=== PATIENT | female | born 1995 | race African-American/Black ===

== ENCOUNTER 2019-06-13 09:27 | Emergency (ER) | payer OTHER ==
[~2019-06-13] VITALS: Ht 157.5 cm; Wt 65.8 kg
[2019-06-13] MEDS ORDERED: IBUPROFEN600 MG ORAL (09:38)
[2019-06-13 09:40] VITALS: BP 112/68
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
--- NOTE | 2019-06-13 09:59 | NUR ---
ED Nurse Note: cast removed from Lt arm. edema but no brusie or wound noted.
--- NOTE | 2019-06-13 10:10 | NUR ---
ED Nurse Note: x-ray at bedside.
--- NOTE | 2019-06-13 10:31 | NUR ---
ED Nurse Note: ERMD at bedside discussing about x-ray results with pt and the mother.
--- NOTE | 2019-06-13 10:52 | NUR ---
ED Nurse Note: sling, garrett wrap, splint applied on Lt arm at bedside.
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
[2019-06-13] MEDS ORDERED: ROBAXIN-500MG ORAL (10:57)
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
[2019-06-13 11:13] VITALS: BP 118/71
--- NOTE | 2019-06-13 11:15 | NUR ---
ED Nurse Note: Pt cleared by health care Provider for discharge after spling, garrett wrap, sling applied on Lt arm. DC instructions/prescription was given and explained to pt and verbalized understanding of teachings. All medical deviecs such as ID band removed. Pt is AAO x4, ambulatory and left with all personal belongings.
== END 2019-06-13 11:15 | disposition home or self-care (01) ==
LOC: EMR 10:12
DX: S80.01XA Contusion of right knee, initial encounter (principal); S62.344A Nondisplaced fracture of base of fourth metacarpal bone, right hand, initial encounter for closed fracture; M54.2 Cervicalgia; X58.XXXA Exposure to other specified factors, initial encounter; Y92.9 Unspecified place or not applicable
CPT/HCPCS: 29505; 99284